=== PATIENT | female | born 1995 ===

== ENCOUNTER 2020-11-20 08:45 | Emergency (ER) | payer OTHER ==
[2020-11-20] MEDS ORDERED: Diphtheria,Pertussis(Acell),Tetanus Vaccine 0.5 ML Syringe IM ONE (09:16)
--- NOTE | 2020-11-20 09:23 | EDM.PDOC ---
ED HPI GENERAL MEDICAL PROBLEM - General Chief Complaint: Bite:Animal, Insect Stated Complaint: DOG BITE Time Seen by Provider: 11/20/20 09:00 - History of Present Illness INITIAL COMMENTS - FREE TEXT/NARRATIVE: 25-year-old female presents with dog bite to the chin. She thought the dog was friendly and the dog came up and bit her. There is no head trauma or neck trauma or loss of consciousness. The dogs shots are up-to-date according to the owners of the dog. Patient does not know when her last tetanus shot was right chin Pain Score (Numeric/FACES): 5 - Related Data Allergies Allergy/AdvReac Type Severity Reaction Status Date / Time No Known Allergies Allergy Verified 11/20/20 09:02 Home Meds: Home Meds Amoxicillin/Potassium Clav [Augmentin 875-125 Tablet] 1 each PO BID #14 tablet 11/20/20 [Rx] Past Medical History - Past Health History Medical/Surgical History: Denies Medical/Surgical History Social & Family History - Tobacco Use Tobacco Use Status *Q: Never Tobacco User - Recreational Drug Use Recreational Drug Use: No ED ROS GENERAL - Review of Systems Review Of Systems: See Below HEENT: Reports: Other (Bite to chin) Musculoskeletal: Reports: Other (jaw Pain at site of bite) Skin: Reports: Other (Dog bite to chin) ED EXAM, ANIMAL BITE - Physical Exam Exam: See Below Text/Narrative:: CONSTITUTIONAL: well appearing in no acute distress SKIN: Patient with bite to the right side of the chin. There is a break in the dermis but the skin tissues are very well approximated. There is no significant depth to the injury HENT: Normocephalic. No underlying bony jaw tenderness NECK: normal range of motion PULMONARY: normal chest rise and fall, no respiratory distress or stridor NEUROLOGIC: normal speech, moves all extremities, grossly non-focal MUSCULOSKELETAL: no gross deformities, atraumatic PSYCHIATRIC: normal mood and affect Course - Vital Signs Text/Narrative:: Patient with dog bite to the chin. The dog was vaccinated. There is no gaping wound and so this was irrigated and tetanus updated. There is nothing to suture. No underlying bony tenderness to suggest fracture. Antibiotics for prophylaxis with return precautions Last Recorded V/S: Last Vital Signs Temp 36.0 C L 11/20/20 09:02 Pulse 60 11/20/20 09:02 Resp BP 107/59 L 11/20/20 09:02 Pulse Ox 99 11/20/20 09:02 - Orders/Labs/Meds Orders: Active Orders 24 hr Category Date Time Status Vaccines to be Administered [RC] PER UNIT ROUTINE Care 11/20/20 09:16 Ordered Meds: Medications Discontinued Medications Generic Name Dose Route Start Last Admin Trade Name David PRN Reason Stop Dose Admin Diphtheria/Tetanus/Acell Pertussis 0.5 ml 11/20/20 09:16 Diphtheria,Pertussis(Acell),Tetanus Vaccine 0.5 Ml Syringe IM 11/20/20 09:17 .ONCE ONE Departure - Departure Time of Disposition: 09:20 Disposition: Home, Self-Care 01 Condition: Good Clinical Impression: Dog bite of chin - Discharge Information Referrals: PCP,None [Primary Care Provider] - Additional Instructions: Return for redness, discharge, swelling, increasing pain. Take antibiotics to prevent infection. The following information is given to patients seen in the emergency department who are being discharged to home. This information is to outline your options for follow-up care. We provide all patients seen in our emergency department with a follow-up referral. The need for follow-up, as well as the timing and circumstances, are variable depending upon the specifics of your emergency department visit. If you don't have a primary care physician on staff, we will provide you with a referral. We always advise you to contact your personal physician following an emergency department visit to inform them of the circumstance of the visit and for follow-up with them and/or the need for any referrals to a consulting specialist. The emergency department will also refer you to a specialist when appropriate. This referral assures that you have the opportunity for follow-up care with a specialist. All of these measure are taken in an effort to provide you with optimal care, which includes your follow-up. Primary care clinics in the area: [facility] [address] [place] [id number] [facility] [address] [place] [address] Under all circumstances we always encourage you to contact your private physician who remains a resource for coordinating your care. When calling for follow-up care, please make the office aware that this follow-up is from your recent emergency room visit. If for any reason you are refused follow-up, please contact the [facility] Emergency Department at and asked to speak to the emergency department charge nurse. Sepsis Event Note (ED) - Evaluation Sepsis Screening Result: No Definite Risk - Focused Exam Vital Signs: Vital Signs Temp Pulse BP Pulse Ox 11/20/20 09:02 36.0 C L 60 107/59 L 99 - My Orders Last 24 Hours: My Active Orders 11/20/20 09:16 Vaccines to be Administered [RC] PER UNIT ROUTINE - Assessment/Plan Last 24 Hours: My Active Orders 11/20/20 09:16 Vaccines to be Administered [RC] PER UNIT ROUTINE
== END 2020-11-20 09:45 | disposition home or self-care (01) ==
LOC: MW.ED 08:45
DX: S01.85XA Open bite of other part of head, initial encounter (principal); Z23 Encounter for immunization; W54.0XXA Bitten by dog, initial encounter
CPT/HCPCS: 90471; 90715; 99282; 99283